=== PATIENT | male | born 1990 | race Caucasian/White ===

== ENCOUNTER 2020-08-31 03:39 | Emergency (ER) | payer OTHER ==
[~2020-08-31] VITALS: Ht 170.2 cm; Wt 73.9 kg
[~2020-08-31 03:39] MED LIST: NOHOMEMEDICATIONS; PHENERGAN 25 MG25 M1 PO
[2020-08-31 04:33] LABS: ABSOLUTE NEUTROPHILS 8.1 thou/uL (1.4-8.2); BASOPHILS 0.8 % (0.0-2.0); EOSINOPHILS 0.5 % (0.0-3.0); HEMATOCRIT 42.4 % (42.0-52.0); HEMOGLOBIN 14.6 gm/dL (14.0-18.0); LYMPHOCYTES 19.9 % (24.0-44.0); MCH 30.5 pg (26.0-34.0); MCHC 34.5 g/dL (28.0-37.0); MCV 88.5 fL (80.0-100.0); MONOCYTES 9.8 % (1.0-8.0); PLATELET COUNT 291 thou/uL (150-400); RBC 4.79 mil/uL (4.50-6.00); RDW 13.1 % (10.5-14.5); WBC 11.8 thou/uL (4.0-11.0)
[2020-08-31 04:43] LABS: CALCIUM 9.3 mg/dL (8.5-10.1); CREATININE 1.2 mg/dL (0.7-1.3); POTASSIUM 3.5 mmol/L (3.5-5.1)
[2020-08-31 04:50] LABS: ALBUMIN 3.6 g/dL (3.4-5.0); TOTAL BILIRUBIN 1.1 mg/dL (0.2-1.0); TOTAL PROTEIN 7.8 g/dL (6.4-8.2)
[2020-08-31 04:55] LABS: URINE BILIRUBIN 1+ (Negative); URINE BLOOD NEGATIVE (Negative); URINE CLARITY CLEAR; URINE COLOR YELLOW; URINE GLUCOSE-RANDOM* NEGATIVE (Negative); URINE KETONES TRACE (Negative); URINE LEUKOCYTES-REFLEX NEGATIVE (Negative); URINE NITRITE-REFLEX NEGATIVE (Negative); URINE PROTEIN (DIPSTICK) TRACE (Negative); URINE SPECIFIC GRAVITY 1.025 (1.005-1.035); URINE UROBILINOGEN >= 8.0 E.U./dl (0.2-1.0)
[2020-08-31] MEDS ORDERED: BACTRIM DS TAB1 EACH PO (05:21)
[2020-08-31 05:28] VITALS: BP 106/56
--- NOTE | 2020-08-31 06:52 | EKG ---
[place] [address] [facility] [place] [address] ELECTROCARDIOGRAM REPORT Name: GARCÍA HERZOGLISA Mejia Room #: [facility]P [facility]#: [id number] Admission: 08/31/20 Attend Phys: Discharge: 08/31/20 Date of : 88 Report #: [id number] [facility] ED Test Date: 2020-08-31 Test Time: 03:51:01 Pat Name: ABENA HERZOG Department: Room: Gender: Customer Service Advocate: TBARNES2 : 1990 Requested By: Dia Pollack Order Number: [id number] MD: Javier Radford Measurements Intervals [place] Rate: 120 P: 56 [place]: 127 QRS: 54 QRSD: 98 T: 45 QT: 299 QTc: 423 Interpretive Statements Sinus tachycardia RSR' in V1 or V2, right VCD or RVH Baseline wander in lead(s) V2 No previous ECG available for comparison Electronically Signed On 08-31-2020 6:52:39 CDT by Javier Radford [email or web address] <ELECTRONICALLY SIGNED> By: Javier Radford MD, [facility] 08/31/20 [id number] Javier Radford MD, FACC /EPI
== END 2020-08-31 05:28 | disposition home or self-care (01) ==
LOC: ER 03:39
PROVIDERS: Emergency Medicine
DX: R50.9 Fever, unspecified (principal); F19.10 Other psychoactive substance abuse, uncomplicated; F11.90 Opioid use, unspecified, uncomplicated; R94.5 Abnormal results of liver function studies; F17.210 Nicotine dependence, cigarettes, uncomplicated

== ENCOUNTER 2021-03-25 01:59 | Emergency (ER) | payer OTHER ==
[~2021-03-25] VITALS: Ht 167.6 cm; Wt 72.6 kg
[~2021-03-25 01:59] MED LIST changes: +BACTRIM DS TAB1 EACH PO
[2021-03-25 02:08] VITALS: BP 115/72
[2021-03-25] MEDS ORDERED: AUGMENTIN 875-1 EACH PO (02:19)
[2021-03-25] MEDS ORDERED: NAPROSYN500 MG PO (02:19)
== END 2021-03-25 03:09 | disposition home or self-care (01) ==
LOC: ER 01:59
DX: K04.7 Periapical abscess without sinus (principal); F17.210 Nicotine dependence, cigarettes, uncomplicated; Z86.16 Personal history of COVID-19